=== PATIENT | male | born 1975 | race Caucasian/White ===

== ENCOUNTER 2016-12-28 13:22 | Emergency (ER) | payer OTHER ==
[~2016-12-28] VITALS: Ht 170.2 cm; Wt 77.3 kg
[2016-12-28 13:33] VITALS: Ht 170.2 cm; Wt 77.3 kg
[2016-12-28] MEDS ORDERED: ASPIRIN 81 MG TAB PO STA (13:52)
--- NOTE | 2016-12-28 13:58 | ERD ---
ER Documentation Chief Complaint Date/Time DATE: 12/28/16 TIME: 13:55 Chief Complaint BROUGHT IN VIA EMS FROM CUSTODY WITH DUE TO CHEST PAIN, NO HX HPI Patient is a 41-year-old male with with no significant past medical history who presents with sudden onset, sharp, moderate, left precordial chest pain radiating to the left neck and left arm starting approximately 30 minutes prior to ER arrival. The patient was brought from the [facility], where he had a court date. He reports intermittently having similar chest pain in the past month, and was seen last week at [facility]. He denies shortness of breath, denies history of cancer, denies recent surgery. Patient is a former smoker, no current smoking or drugs. Denies fever, cough, back pain. ROS All systems reviewed and are negative except as per history of present illness. Medications Home Meds Unable to Obtain Active Prescriptions or Reported Meds Allergies Allergies: Coded Allergies: Unable to Assess (Verified Allergy, Severe, 12/28/16) PMhx/Soc Past medical history: Chronic low back pain, torn ACL Past surgical history: Denies Social history: Former smoker, no current tobacco, alcohol or illicit drugs. FmHx Family History: No coronary disease, No diabetes Physical Exam Vitals Vital Signs Date Time Temp Pulse Resp B/P Pulse Ox O2 Delivery O2 Flow Rate FiO2 12/28/16 17:35 70 20 120/78 Nasal Cannula 2.0 12/28/16 15:18 Nasal Cannula 2 12/28/16 13:33 98.5 70 18 126/66 97 Physical Exam Const: Alert, no acute distress Head: Atraumatic Eyes: Normal Conjunctiva, no pallor, no icterus ENT: Normal External Ears, Nose and Mouth. Mucous membranes moist Neck: Full range of motion. No JVD. No meningismus. Resp: Clear to auscultation bilaterally, no wheezes, no rales Cardio: Regular rate and rhythm, no murmurs, 2+ pulses in 4 extremities. Moderate left anterior chest wall tenderness. Abd: Soft, non tender, non distended. Normal bowel sounds Skin: No petechiae or rashes Back: No midline or flank tenderness Ext: No cyanosis, or edema Neur: Awake and alert, cranial nerves II through XII intact bilaterally, moves and feels 4 extremities appropriately Psych: Normal Mood and Affect Result Diagram: 12/28/16 1405 12/28/16 1405 Results 24 hrs Laboratory Tests Test 12/28/16 14:05 12/28/16 17:10 White Blood Count 7.010^3/ul Red Blood Count 5.0910^6/ul Hemoglobin 14.4g/dl Hematocrit 43.4% Mean Corpuscular Volume 85.3fl Mean Corpuscular Hemoglobin 28.3pg Mean Corpuscular Hemoglobin Concent 33.2g/dl Red Cell Distribution Width 13.1% Platelet Count 96021^3/UL Mean Platelet Volume 8.5fl Neutrophils % 47.8% Lymphocytes % 33.5% Monocytes % 10.0% Eosinophils % 7.3% Basophils % 0.7% Nucleated Red Blood Cells % 0.0/100WBC Neutrophils # 3.310^3/ul Lymphocytes # 2.310^3/ul Monocytes # 0.710^3/ul Eosinophils # 0.510^3/ul Basophils # 0.110^3/ul Nucleated Red Blood Cells # 0.010^3/ul Prothrombin Time 11.7Sec Prothrombin Time Ratio 0.9 INR International Normalized Ratio 0.86 Activated Partial Thromboplast Time 25.4Sec Sodium Level 138mmol/L Potassium Level 4.4mmol/L Chloride Level 108mmol/L Carbon Dioxide Level 26mmol/L Anion Gap 8 Blood Urea Nitrogen 21mg/dl Creatinine 0.85mg/dl Glucose Level 103mg/dl Calcium Level 9.1mg/dl Troponin I < 0.012ng/ml < 0.012ng/ml Current Medications Medications (Trade) Dose Ordered Sig/Amanda Route PRN Reason Start Time Stop Time Status Last Admin Dose Admin Aspirin (Aspirin) 162 mg ONCE STAT PO 12/28/16 13:52 12/28/16 13:53 DC 12/28/16 14:32 Tramadol HCl (Ultram) 50 mg ONCE ONCE PO 12/28/16 18:00 12/28/16 18:01 DC 12/28/16 18:00 Procedures/MDM Prehospital EKG: Time not recorded, rate 70 normal sinus rhythm, normal axis and intervals, no ischemic ST-T wave changes, no ectopy. Interpretation: normal EKG. EKG read by me: Time 1417, rate 84 Rhythm: Normal sinus [place]: Normal Intervals: Normal ST-T waves: no ischemic changes Ectopy: No Q-waves: No Impression: No evidence of ischemia or arrhythmia MDM: Patient is a 41-year-old male without significant medical history who presents with acute onset of left-sided chest pain radiating to the neck and arm. The pain is sharp and is reproducible on exam. Patient also complains of muscular pain in his back. The patient has had recurrent episodes of similar pain over the last month or longer. I reviewed outside hospital records from [facility] on December 02, 2016, and the patient had a normal EKG, chest x-ray, and negative troponin. In the ER today, the patient has a normal EKG and 2 negative troponins in the setting of constant pain for greater than 4 hours. The patient is PERC negative. Symptoms are not suggestive of aortic dissection. Chest x-ray is unremarkable. I believe the symptoms are very atypical for coronary ischemia and given multiple negative workups, I believe the patient can be safely discharged. Symptoms are highly suggestive of musculoskeletal pain. I have advised him to return to the ER immediately for recurrent symptoms, and to follow-up with the [facility] in 1-2 days for further workup as indicated. Pain medication can be provided by [facility] as warranted. Departure Diagnosis: Primary Impression: Chest pain Chest pain type: unspecified Qualified Code: R07.9 - Chest pain, unspecified type Condition: NISHA Arvizu MD Dec 28, 2016 13:58
[2016-12-28 14:17] LABS: ADD SCAN DIFF NO
[2016-12-28 14:21] LABS: BASOPHIL # 0.1 10^3/ul (0.0-0.1); BASOPHILS % 0.7 % (0.0-2.0); EOSINOPHILS # 0.5 10^3/ul (0.0-0.5); EOSINOPHILS % 7.3 % (0.0-7.0); HEMATOCRIT 43.4 % (42.0-52.0); HEMOGLOBIN 14.4 g/dl (14.0-18.0); LYMPHOCYTES # 2.3 10^3/ul (0.8-2.9); LYMPHOCYTES % 33.5 % (15.0-51.0); MEAN CORPUSCULAR HEMOGLOBIN 28.3 pg (29.0-33.0); MEAN CORPUSCULAR HGB CONC 33.2 g/dl (32.0-37.0); MEAN CORPUSCULAR VOLUME 85.3 fl (82.0-101.0); MEAN PLATELET VOLUME 8.5 fl (7.4-10.4); MONOCYTE # 0.7 10^3/ul (0.3-0.9); NEUTROPHIL # 3.3 10^3/ul (1.6-7.5); NEUTROPHILS % 47.8 % (39.0-77.0); PLATELET COUNT 250 10^3/UL (140-415); RED BLOOD COUNT 5.09 10^6/ul (4.70-6.10); RED CELL DISTRIBUTION WIDTH 13.1 % (11.5-14.5)
[2016-12-28 14:31] LABS: INR 0.86; PROTIME 11.7 Sec (12.2-14.2); PT RATIO 0.9
[2016-12-28 14:32] LABS: PARTIAL THROMBOPLASTIN TIME 25.4 Sec (25.0-35.0)
[2016-12-28 14:33] LABS: ANION GAP 8 (8-16); BLOOD UREA NITROGEN 21 mg/dl (7-20); CALCIUM 9.1 mg/dl (8.4-10.2); CARBON DIOXIDE 26 mmol/L (21-31); CHLORIDE 108 mmol/L (97-110); CREATININE 0.85 mg/dl (0.61-1.24); GLUCOSE 103 mg/dl (70-220); POTASSIUM 4.4 mmol/L (3.5-5.1); SODIUM 138 mmol/L (135-144)
[2016-12-28 14:46] LABS: TROPONIN-I < 0.012 ng/ml (0.00-0.12)
--- NOTE | 2016-12-28 15:20 | RADRPT ---
PROCEDURE: XR Chest. CLINICAL INDICATION: Chest pain. TECHNIQUE: Single frontal view. COMPARISON: None. FINDINGS: The lungs are clear. The heart size is normal. There is no pleural effusion. There is no pneumothorax. IMPRESSION: 1. Normal chest radiograph. RPTAT: QQ .Leeroy Winters MD, Date Time Electronically viewed and signed by .Leeroy Winters MD, on 12/28/2016 15:20 .R/
[2016-12-28 17:35] VITALS: BP 120/78; PULSE 70; RESP 20
[2016-12-28] MEDS ORDERED: traMADol 50 MG TAB PO ONE (18:00)
== END 2016-12-28 18:47 | disposition home or self-care (01) ==
LOC: E/R 13:22
DX: R07.2 Precordial pain (principal); R40.2142 Coma scale, eyes open, spontaneous, at arrival to emergency department; R40.2252 Coma scale, best verbal response, oriented, at arrival to emergency department; R40.2362 Coma scale, best motor response, obeys commands, at arrival to emergency department; R07.9 Chest pain, unspecified; Z87.891 Personal history of nicotine dependence
CPT/HCPCS: 36415; 71010; 80048; 84484; 85025; 85610; 85730; 93005